=== PATIENT | female | born 1985 | race American Indian/Alaskan Native ===

== ENCOUNTER 2017-01-06 14:58 | Outpatient (CLI) | payer MEDICAID ==
[2017-01-06 15:55] VITALS: BP 103/72
--- NOTE | 2017-01-07 07:35 | Ultrasound Report ---
ULTRASOUND BIOPHYSICAL PROFILE: History: well being, heart decelerations Technique: Transabdominal ultrasound with Doppler interrogation. 2 - breathing movements 2 - movements 2 - posture and tone 2 - Qualitative amniotic fluid volume 8 - TOTAL SCORE OF POSSIBLE 8 Heart Rate (bpm) 141
== END 2017-01-06 17:51 | disposition home or self-care (01) ==
LOC: TRG 14:58
PROVIDERS: ATTEND Obstetrics & Gynecology
DX: O47.1 False labor at or after 37 completed weeks of gestation (principal); Z3A.38 38 weeks gestation of pregnancy
CPT/HCPCS: 59025; 76819

== ENCOUNTER 2017-01-14 01:40 | Outpatient (CLI) | payer MEDICAID ==
[2017-01-14 02:10] VITALS: BP 122/74
== END 2017-01-14 02:53 | disposition home or self-care (01) ==
LOC: TRG 01:40
PROVIDERS: ATTEND Obstetrics & Gynecology
DX: O47.1 False labor at or after 37 completed weeks of gestation (principal); Z3A.39 39 weeks gestation of pregnancy; Z87.891 Personal history of nicotine dependence
CPT/HCPCS: 59025

== ENCOUNTER 2018-01-16 08:46 | Emergency (ER) | payer MEDICAID ==
[2018-01-16 09:06] VITALS: BP 118/66
[2018-01-16] MEDS ORDERED: TYLENOL ONE (09:06)
[2018-01-16] MEDS ORDERED: TYLENOL PO ONE (09:06)
--- NOTE | 2018-01-16 10:40 | Emergency Department Report ---
ED ENT HPI - General Stated complaint: TOOTHACHE/HEADACHE Time Seen by Provider: 01/16/18 10:35 Source: patient Mode of arrival: Ambulatory Limitations: No Limitations - History of Present Illness MD complaint: tooth pain -: Gradual, days(s) (several) Severity: moderate Quality: dull Consistency: constant Improves with: other ([id number] topical therapy) Worsens with: none Context- Dental: history of dental caries - Related Data Previous Rx's Medication Instructions Recorded Last Taken Type Triamcinolone Acetonide 80 gm TP BID #1 cream..g. 11/05/13 Unknown Rx [Triamcinolone Acetonide Cream 0.1%] predniSONE [Deltasone] 50 mg PO QDAY #5 tab 11/05/13 Unknown Rx Cyclobenzaprine [Flexeril 10mg] 10 mg PO BID PRN #10 tablet 10/02/14 Unknown Rx Ibuprofen [Motrin 600 MG tab] 600 mg PO Q8H PRN #10 tablet 10/02/14 Unknown Rx HYDROcodone/APAP 5-325 [[place] 1 each PO Q8H PRN #15 tablet 03/19/15 Unknown Rx 5-325 mg TAB] Ibuprofen [Motrin 800 MG tab] 800 mg PO Q8HR PRN #15 tablet 03/19/15 Unknown Rx Penicillin Vk [Veetids TAB] 500 mg PO Q8H #30 tablet 03/19/15 Unknown Rx Oxycodone HCl/Acetaminophen 1 each PO Q6HR PRN #20 tablet 03/20/15 Unknown Rx [Percocet 10/325 mg] Acetaminophen/Codeine [Tylenol 1 tab PO Q6H PRN #14 tab 08/26/15 Unknown Rx /Codeine # 3 tab] Penicillin Vk [Veetids TAB] 250 mg PO QID #40 tablet 08/26/15 Unknown Rx Allergies Allergy/AdvReac Type Severity Reaction Status Date / Time nickel [Nickel] Allergy Rash Verified 01/16/18 09:02 ED Dental HPI - General Stated complaint: TOOTHACHE/HEADACHE Time Seen by Provider: 01/16/18 10:35 Source: patient Mode of arrival: Ambulatory Limitations: No Limitations - Related Data Previous Rx's Medication Instructions Recorded Last Taken Type Triamcinolone Acetonide 80 gm TP BID #1 cream..g. 11/05/13 Unknown Rx [Triamcinolone Acetonide Cream 0.1%] predniSONE [Deltasone] 50 mg PO QDAY #5 tab 11/05/13 Unknown Rx Cyclobenzaprine [Flexeril 10mg] 10 mg PO BID PRN #10 tablet 10/02/14 Unknown Rx Ibuprofen [Motrin 600 MG tab] 600 mg PO Q8H PRN #10 tablet 10/02/14 Unknown Rx HYDROcodone/APAP 5-325 [[place] 1 each PO Q8H PRN #15 tablet 03/19/15 Unknown Rx 5-325 mg TAB] Ibuprofen [Motrin 800 MG tab] 800 mg PO Q8HR PRN #15 tablet 03/19/15 Unknown Rx Penicillin Vk [Veetids TAB] 500 mg PO Q8H #30 tablet 03/19/15 Unknown Rx Oxycodone HCl/Acetaminophen 1 each PO Q6HR PRN #20 tablet 03/20/15 Unknown Rx [Percocet 10/325 mg] Acetaminophen/Codeine [Tylenol 1 tab PO Q6H PRN #14 tab 08/26/15 Unknown Rx /Codeine # 3 tab] Penicillin Vk [Veetids TAB] 250 mg PO QID #40 tablet 08/26/15 Unknown Rx Allergies Allergy/AdvReac Type Severity Reaction Status Date / Time nickel [Nickel] Allergy Rash Verified 01/16/18 09:02 ED Review of Systems ROS: Stated complaint: TOOTHACHE/HEADACHE Other details as noted in HPI Constitutional: denies: chills, fever, malaise Respiratory: denies: cough Cardiovascular: denies: chest pain Gastrointestinal: denies: nausea, vomiting ED Past Medical Hx - Past Medical History Hx Hypertension: No Hx CVA: No Hx Heart Attack/AMI: No Hx Congestive Heart Failure: No Hx Diabetes: No Hx Deep Vein Thrombosis: No Hx Pulmonary Embolism: No Hx GERD: No Hx Liver Disease: No Hx Renal Disease: No Hx Sickle Cell Disease: No Hx Arthritis: No Hx Headaches / Migraines: No Hx Seizures: No Hx Kidney Stones: No Hx Psychiatric Treatment: No Hx Asthma: No Hx COPD: No Hx Dementia: No Hx HIV: No - Surgical History Hx Coronary Stent: No Hx Open Heart Surgery: No Hx Pacemaker: No Hx Internal Defibrillator: No Hx Cholecystectomy: No Hx Appendectomy: No Hx Breast Surgery: No Additional Surgical History: 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 11/05/13 01/15/17 Unknown Rx [Triamcinolone Acetonide Cream 0.1%] predniSONE [Deltasone] 50 mg PO QDAY #5 tab 11/05/13 01/15/17 Unknown Rx Cyclobenzaprine [Flexeril 10mg] 10 mg PO BID PRN #10 tablet 10/02/14 01/15/17 Unknown Rx Ibuprofen [Motrin 600 MG tab] 600 mg PO Q8H PRN #10 tablet 10/02/14 01/15/17 Unknown Rx HYDROcodone/APAP 5-325 [[place] 1 each PO Q8H PRN #15 tablet 03/19/15 01/15/17 Unknown Rx 5-325 mg TAB] Ibuprofen [Motrin 800 MG tab] 800 mg PO Q8HR PRN #15 tablet 03/19/15 01/15/17 Unknown Rx Penicillin Vk [Veetids TAB] 500 mg PO Q8H #30 tablet 03/19/15 01/15/17 Unknown Rx Oxycodone HCl/Acetaminophen 1 each PO Q6HR PRN #20 tablet 03/20/15 01/15/17 Unknown Rx [Percocet 10/325 mg] Acetaminophen/Codeine [Tylenol 1 tab PO Q6H PRN #14 tab 08/26/15 01/15/17 Unknown Rx /Codeine # 3 tab] Penicillin Vk [Veetids TAB] 250 mg PO QID #40 tablet 08/26/15 01/15/17 Unknown Rx ED Physical Exam - General Limitations: No Limitations General appearance: alert, in no apparent distress - Head Head exam: Present: atraumatic, normocephalic - Eye Eye exam: Present: normal appearance - ENT ENT exam: Present: other (diffuse chronic tooth decay or infection without facial swelling) - Neck Neck exam: Present: normal inspection - Respiratory Respiratory exam: Absent: respiratory distress - Neurological Exam Neurological exam: Present: alert, oriented X3 - Psychiatric Psychiatric exam: Present: normal affect ED Course Vital Signs 01/16/18 09:02 Temperature 98.2 F Pulse Rate 68 Blood Pressure 118/66 ED Medical Decision Making - Medical Decision Making Ms. Don is a 31-year-old female who presents with dental caries and acute toothache. She desires work note so that she can return to her job tomorrow. She does not desire any medication for pain. Critical care attestation.: If time is entered above; I have spent that time in minutes in the direct care of this critically ill patient, excluding procedure time. ED Disposition Clinical Impression: Toothache, Dental caries Disposition: DC- TO HOME OR SELFCARE Is pt being admited?: No Does the pt Need Aspirin: No Condition: Stable Instructions: Dental Caries (ED) Referrals: [facility] [Outside] - 3-5 Days Forms: Work/School Release Form(ED) Time of Disposition: 10:40
== END 2018-01-16 10:45 | disposition home or self-care (01) ==
LOC: ED 08:46
DX: K02.9 Dental caries, unspecified (principal); K08.89 Other specified disorders of teeth and supporting structures; F17.200 Nicotine dependence, unspecified, uncomplicated
CPT/HCPCS: 99282